=== PATIENT | female | born 1945 | race Caucasian/White ===

== ENCOUNTER 2018-09-20 02:11 | Outpatient (CLI) | payer OTHER, SELFPAY ==
[2018-09-20 11:04] LABS: Abs Immature Grans 0.03 k/cumm (0.0-0.09); Absolute Basophil Count 0.04 k/cumm (0.0-0.2); Absolute Eosinophil Count 0.23 k/cumm (0.0-0.7); Absolute Lymphocyte Count 2.16 k/cumm (1.2-3.4); Absolute Monocyte Count 0.66 k/cumm (0.11-0.7); Absolute Neutrophil Count 2.11 k/cumm (1.2-6.7); Basophils % 0.8; Eosinophils % 4.4; HGB 13.6 g/dL (12.0-15.5); Immature Grans % 0.6; Lymphocytes % 41.3; Mean Corp. HGB Concentration 32.4 g/dL (32.0-36.0); Mean Corpuscular Hemoglobin 31.2 pg (27.0-33.0); Mean Corpuscular Volume 96.3 fL (80-95); Mean Platelet Volume 10.5 fL (8.0-11.0); Monocytes % 12.6; Neutrophils % 40.3; Platelet Count 277 x1000/uL (130-400); RBC 4.36 m/cumm (4.00-5.20); RBC Distribution Width 12.6 % (11.7-14.6); White Blood Cell Count 5.23 k/cumm (4.4-10.8)
[2018-09-20 11:26] LABS: ALT 29 U/L (12-78); AST 21 U/L (15-37); Alkaline Phosphatase 76 U/L (46-116); Anion Gap 6.8 mmol/L (3-11); BUN 18 mg/dL (7-18); Bilirubin, Total 0.7 mg/dL (0.2-1.0); CO2 29.2 mmol/L (21.0-32.0); CREATININE 1.01 mg/dL (0.55-1.02); Calcium 9.6 mg/dL (8.5-10.1); Calculated LDL 126; Chloride 101 mmol/L (98-107); Cholesterol 257 mg/dL (50-200); Estimated GFR 53.73 (mL/min/1.73m2); Glucose 113 mg/dL (70-100); HDL Cholesterol 109 mg/dL (40-60); Potassium 4.8 mmol/L (3.5-5.1); Sodium 137 mmol/L (136-145); TSH (W/Ref FT4) 1.28 uIU/mL (0.358-3.74); Total Protein 7.1 g/dL (6.4-8.2); Triglyceride 113 mg/dL (30-150)
== END 2018-09-20 02:31 ==
PROVIDERS: PCP Internal Medicine; Visit Provider Internal Medicine
DX: I10 Essential (primary) hypertension (principal); E78.5 Hyperlipidemia, unspecified
CPT/HCPCS: 36415; 80053; 80061; 83721; 84443; 85025

== ENCOUNTER 2018-10-09 01:07 | Outpatient (CLI) | payer OTHER, SELFPAY ==
--- NOTE | 2018-10-09 14:55 | DI.MAMMO_ITS ---
SYMPTOMS/DIAGNOSIS: SCREENING, ENCOUNTER FOR MEDICAL EXAM, Z00.00 BILATERAL SCREENING MAMMOGRAM: Mammograms were interpreted according to the usual protocol including computer analysis with CAD system, tomosynthesis and C view imaging. Comparison is made with exams from 2010 through 2016. The breasts are composed of scattered fibroglandular densities, breast density category B. No suspicious masses or suspicious microcalcifications are seen. There has been no significant change. IMPRESSION: Category 1, negative mammogram. Yearly screening mammography is recommended. [facility] ASSESSMENT OF FINDINGS: Negative. Category 1. Patient will receive a letter notifying them of these results. BI-RADS category B. There are scattered areas of fibroglandular density.
--- NOTE | 2018-10-09 14:55 | DI.RAD_ITS ---
SYMPTOMS/DIAGNOSIS: F/U OSTEOPOROSIS, M81.0 DEXA SCAN WITH JUAN: Comparison is made with exams from 2007 through 2012. The JUAN image shows no evidence of compression fractures. The bone mineral density measurements of the lumbar spine correspond to a total T score of -2.4, in the osteopenic range. This is an increase of 4.0% when compared with 2012 and an 8% increase when compared with 2007. The bone mineral density measurements of the left hip correspond to a total T score of -1.6 and a femoral neck T score of -1.9, in the osteopenic range. This is a 5.2% decrease when compared with 2012 and a 2.9% increase when compared with 2007. The bone mineral density measurements of the right forearm correspond to a total T score of -1.9 and a T score of the distal third also of -1.9. This is a 4.9% decrease when compared with 2009. IMPRESSION: Osteopenia of the lumbar spine with increase when compared with the previous exam. Osteopenia of the left hip with overall slight increase compared with 2007. Osteopenia of the right forearm with mild decrease when compared with 2009.
== END 2018-10-09 01:27 ==
PROVIDERS: PCP Internal Medicine; Visit Provider Internal Medicine
DX: M81.0 Age-related osteoporosis without current pathological fracture; M85.88 Other specified disorders of bone density and structure, other site; Z12.31 Encounter for screening mammogram for malignant neoplasm of breast
CPT/HCPCS: 77063; 77067; 77080

== ENCOUNTER 2019-08-19 21:27 | Outpatient (REF) | payer OTHER, SELFPAY ==
[2019-08-19 18:25] LABS: Bilirubin Negative (Negative); Blood Moderate (Negative); Clarity Cloudy (Clear); Glucose Negative (Negative); Ketones Negative (Negative); Leukocyte Esterase Small (Negative); Nitrite Positive (Negative); Specific Gravity 1.025 (1.005-1.025); Urobilinogen 0.2 EU/dL (Up TO 0.2)
[2019-08-19 18:35] LABS: WBC >50 HPF (0-5)
[2019-08-19 18:36] LABS: C & S Indicated? C&S Done As Ordered
== END 2019-08-19 21:47 ==
LOC: LBN 21:27
PROVIDERS: PCP Nurse Practitioner
DX: R30.0 Dysuria (principal)
CPT/HCPCS: 87077; 81003; 81015; 87086; 87186

== ENCOUNTER 2019-10-29 12:32 | Outpatient (REF) | payer OTHER, SELFPAY ==
[2019-10-29 21:28] LABS: CREATININE 1.05 mg/dL (0.55-1.02); Calculated LDL 130 mg/dL (<100); Cholesterol 235 mg/dL (<200); Estimated GFR 51.23 (mL/min/1.73m2); HDL Cholesterol 90 mg/dL (40-60); Potassium 4.6 mmol/L (3.5-5.1); Triglyceride 78 mg/dL (<150)
[2019-10-29 21:55] LABS: Hemoglobin A1C 6.1 % (3.8-5.6)
== END 2019-10-29 12:52 ==
LOC: LBN 12:32
PROVIDERS: PCP Nurse Practitioner; Visit Provider Nurse Practitioner
DX: Z13.1 Encounter for screening for diabetes mellitus (principal); E78.5 Hyperlipidemia, unspecified; I10 Essential (primary) hypertension
CPT/HCPCS: 80061; 82565; 83036; 84132

== ENCOUNTER 2019-10-31 00:31 | Outpatient (CLI) | payer OTHER, SELFPAY ==
--- NOTE | 2019-10-31 08:14 | DI.MAMMO_ITS ---
EXAM: MG MAMMO SCREENING CLINICAL HISTORY: screening TECHNIQUE: Bilateral full field digital CC and MLO mammographic images were obtained with 3D tomosyn thesis and utilizing computer aided detection (CAD). COMPARISON: Available for comparison. FINDINGS: Masses/Architectural Distortion: None seen. Microcalcifications: No suspicious pleomorphic-type are seen. Skin Thickening/Nipple Retraction: None. IMPRESSION: 1. No significant interval change with no specific features of malignancy noted. 2. Unless there is more urgent need, screening mammography is recommended, as per [employer] guidelines. BI-RADS Category 1 - Negative Breast Density - Category C - Heterogeneously dense The mammogram demonstrates the patient's breast tissue is dense. Dense breast tissue is very common a nd is not abnormal but dense breast tissue can make it harder to find cancer on a mammogram. Also, de nse breast tissue may increase their breast cancer risk. This information about the result of the [facility] mogram report was provided to the patient to raise their awareness. Use this report when you speak wi th the patient about their risks for breast cancer, which includes their family history. At that time , you may recommend for more screening tests (Ultrasound or MRI) as they might be useful based on the ir risk. A negative radiographic report should not delay biopsy if a dominant or clinically suspicious mass is present. Up to ten percent of cancers are not identified on mammography. A negative report may reinforce clinical impression. Adenosis and dense breasts may obscure an underlying neoplasm. False positive reports average 6 to 10%. Patient will receive a letter notifying them of these results.
== END 2019-10-31 00:51 ==
PROVIDERS: PCP Nurse Practitioner; Visit Provider Nurse Practitioner
DX: Z12.31 Encounter for screening mammogram for malignant neoplasm of breast (principal); R92.2 Inconclusive mammogram
CPT/HCPCS: 77063; 77067

== ENCOUNTER 2020-11-02 01:57 | Outpatient (CLI) | payer OTHER, SELFPAY ==
[2020-11-02 12:37] LABS: Calculated LDL 108 mg/dL (<100); Cholesterol 220 mg/dL (<200); Estimated GFR 54.05 (mL/min/1.73m2); HDL Cholesterol 98 mg/dL (40-60); Potassium 4.6 mmol/L (3.5-5.1); Triglyceride 74 mg/dL (<150)
[2020-11-02 13:15] LABS: Hemoglobin A1C 6.1 % (<5.7)
== END 2020-11-02 01:58 | disposition home or self-care (01) ==
LOC: LOS 01:58
PROVIDERS: PCP Nurse Practitioner; Visit Provider Nurse Practitioner
DX: I10 Essential (primary) hypertension (principal); E78.5 Hyperlipidemia, unspecified; R73.03 Prediabetes
CPT/HCPCS: 36415; 80061; 82565; 83036; 84132

== ENCOUNTER 2020-11-19 03:00 | Outpatient (CLI) | payer OTHER, SELFPAY ==
--- NOTE | 2020-11-19 06:15 | DI.MAMMO_ITS ---
Exam(s) MAMMO SCREENING EXAM: MAMMO SCREENING CLINICAL HISTORY: screening,Z12.39 TECHNIQUE: Bilateral full field digital CC and MLO mammographic images were obtained with 3D tomosyn thesis and utilizing computer aided detection (CAD). COMPARISON: Available for comparison. FINDINGS: Masses/Architectural Distortion: There is a 1.4 cm partially obscured ovoid nodule in the outer right breast on the craniocaudad view. This was not apparent on the prior examination. Microcalcifications: No suspicious pleomorphic-type are seen. Skin Thickening/Nipple Retraction: None. IMPRESSION: 1. 1.4 cm nodule in the outer right breast. 2. Additional views are requested for further evaluation. Ultrasound may be indicated at that time. BI-RADS Category 0 - Assessment Incomplete: Need additional imaging evaluation Breast Density - Category C - Heterogeneously dense Breast density category C or D implies that the patient has dense breast tissue. Dense breast tissue is very common and is not abnormal but dense breast tissue can make it harder to find cancer on a ma mmogram. Also, dense breast tissue may increase their breast cancer risk. This information about the result of the mammogram report was provided to the patient to raise their awareness. Use this report when you speak with the patient about their risks for breast cancer, which includes their family hist ory. At that time, you may recommend for more screening tests (Ultrasound or MRI) as they might be us eful based on their risk. A negative radiographic report should not delay biopsy if a dominant or clinically suspicious mass is present. Up to ten percent of cancers are not identified on mammography. A negative report may reinforce clinical impression. Adenosis and dense breasts may obscure an underlying neoplasm. False positive reports average 6 to 10%. Patient will receive a letter notifying them of these results.
== END 2020-11-19 03:20 ==
PROVIDERS: PCP Nurse Practitioner; Visit Provider Nurse Practitioner
DX: Z12.31 Encounter for screening mammogram for malignant neoplasm of breast (principal); N63.10 Unspecified lump in the right breast, unspecified quadrant
CPT/HCPCS: 77063; 77067

== ENCOUNTER 2020-12-15 01:26 | Outpatient (CLI) | payer OTHER, SELFPAY ==
--- NOTE | 2020-12-15 10:10 | DI.MAMMO_ITS ---
Exam(s) MAMMO SCREEN CALL BACK UNI EXAM: MAMMO SCREEN CALL BACK UNI CLINICAL HISTORY: F/U MAMMO, RT BREAST NODULE TECHNIQUE: Spot compression views and tomographic imaging were performed. COMPARISON: 19 November 2020 and exams back to 2011 FINDINGS: No suspicious masses or suspicious microcalcifications are seen. No persistent abnormality is seen on the additional views performed. The findings are consistent wit h overlying fibroglandular tissue. There has been no significant change from prior exams. IMPRESSION: BI-RADS Category 1, Negative Yearly screening mammography is recommended. Breast Density - Category C - Heterogeneously dense.
== END 2020-12-15 01:46 ==
PROVIDERS: PCP Nurse Practitioner; Visit Provider Nurse Practitioner
DX: R92.8 Other abnormal and inconclusive findings on diagnostic imaging of breast (principal); N63.10 Unspecified lump in the right breast, unspecified quadrant; Z12.31 Encounter for screening mammogram for malignant neoplasm of breast
CPT/HCPCS: 77063; 77067

== ENCOUNTER 2021-03-18 10:06 | Outpatient (CLI) | payer MEDICARE, SELFPAY ==
--- NOTE | 2021-03-18 09:15 | DI.DEXA_ITS ---
Exam(s) XR DEXA BONE DENSITY W/WO JUAN EXAM: XR DEXA BONE DENSITY W/WO JUAN CLINICAL HISTORY: osteoporosis,M81.0 TECHNIQUE: Routine DEXA evaluation of the lumbar spine, hip, or forearm. COMPARISON: Prior DXA scans, most recent being October 2018 FINDINGS: Performed on a HoloTiempy unit. Lateral image: No compression fracture evident. Lumbar Spine total T-score: -2.3.. Prior October 2018 reading -2.4 Hip total T-score:-1.5. Prior October 2018 reading was -1.6. Independent reading at the level of the femoral neck yields at T-score of -2.0. Forearm total T-score: -1.8 IMPRESSION: Bone mineral density measures in the osteopenia range. Fracture risk is moderate. Note: Any spine fracture indicates 5x risk for subsequent spine fracture and 2x risk for subsequent h ip fracture. World Health Organization criteria for BMD interpretation classify patients: Normal...... T- Score at or above -1.0 Osteopenic... T- Score between -1.0 and -2.5 Osteoporosis... T-Score at or below -2.5
== END 2021-03-18 10:26 ==
PROVIDERS: PCP Nurse Practitioner; Visit Provider Nurse Practitioner
DX: M81.0 Age-related osteoporosis without current pathological fracture (principal); M85.88 Other specified disorders of bone density and structure, other site
CPT/HCPCS: 77080

== ENCOUNTER → 2021-05-21 13:13 | Outpatient (BNVA) | payer MEDICARE, SELFPAY | PROVIDERS: PCP Nurse Practitioner; Referring Provider Nurse Practitioner; Visit Provider Physical Therapy Assistant | DX: Z12.11 Encounter for screening for malignant neoplasm of colon (principal); I10 Essential (primary) hypertension ==

== ENCOUNTER 2021-09-27 06:58 | Day surgery (SDC) | payer MEDICARE, SELFPAY ==
--- NOTE | 2021-09-27 06:43 | W.PREOPHP ---
Assessment and Plan Assessment and plan (1) Encounter for colorectal cancer screening: Status: Acute Assessment and plan: The patient is here for Colonoscopy pre-op. Her last screening was in 2010 and was unremarkable. She has no family history of colon cancer. She has not had any bowel habit changes. -Discussed colonoscopy bowel prep as well as the procedure. Discussed possible complications of the procedure to include bleeding, pain, perforation, missed small lesion/polyp, sore throat, aspiration and adverse reaction to the medications. Questions were answered to patient?s satisfaction. No guarantees were implied or given.? She will hold her fish oil and vitamin D x 5 days prior to her procedure. Will hold lisinopril-hydrochlorothiazide the morning of his procedure. I spent? ? 26? ? minutes in reviewing the record, seeing the patient, providing patient education, answering patient's questions and documenting in the medical record. P// Colonoscopy under sedation. History of Present Illness Narrative: 75 y/o female with history of prediabetes, HTN and hyperlipidemia presents for colonoscopy screening pre-op. Her last screening was in 2010, which was unremarkable. She denies a family history of colon cancer. She denies any changes in bowel habits including bloody or black tarry stools, abdominal pain, diarrhea or constipation. She denies constitutional symptoms. Denies use of marijuana or any other recreational or illegal drugs. She denies chest pain, palpitations, dyspnea or dyspnea with exertion. She participates in a pilates/yoga combo class 3x/wk.? She denies prior history or family history of adverse reactions or complications with anesthesia. The patient denies any history of stroke, DE, seizures, bleeding or clotting disorders. She denies having any implanted metal in her body. No changes in her health and no admissions to the ED since she was seen in May Review of Systems All systems reviewed & are unremarkable except as noted in HPI and below PFSH All Active Problems Osteoporosis (Chronic 09/05/12) DEXA 03/30- osteopenia Hyperlipidemia (Chronic 09/05/12) Last numbers were good and we will recheck these. Essential hypertension (Acute 03/06/13) Dermatitis, seborrheic (Chronic 04/22/16) Pre-diabetes (Acute) Encounter for colorectal cancer screening (Acute) Medical History History of trigger finger Hyperlipidemia Hypertension Internal derangement of right knee (02/27/17) Osteoporosis Scalp lesion Send pictures to Dr. Rice, burring wheel operator, for his advice. Seborrheic keratosis Surgical History Excision, Lesion (04/22/16) benign wart, seorrheic keratosis History of carpal tunnel release History of tubal ligation Family History Mother , 79 Heart disease Hyperlipidemia Hypertension Father , 42 Depression Brother , 44 No problems noted. Maternal Grandfather , 45 Cancer Paternal Grandfather , 80 No problems noted. Maternal Grandmother , 79 Heart disease Paternal Grandmother , 75 No problems noted. Daughter No problems noted. Other Essential hypertension Social History Smoking/Tobacco Use Status: Never Tobacco: How many years used: 3 Second Hand Exposure: No Smoking risk assessment performed?: Yes Alcohol Intake: current Alcohol Intake frequency: 0-2 drinks per day Alcohol type: wine Drug use: Never Substance use type: does not use Caregiver/Support person: No Household members: spouse Housing: house Communication Needs: None Do you need help understanding health information?: Rarely Pets and animals: No Sexually active: Yes Do you think of yourself as: straight/heterosexual Current gender identity: female What is your relationship status?: How often do you talk on the phone with friends or family?: twice per week How often do you get together with friends or relatives?: once per week How often do you attend pentecostalism or mormonism services?: decline to answer Do you belong to any clubs or organized social groups?: no Panel score (0-1 are the most socially isolated patients): 2 What type of physical activity do you participate in: walking, other Details: PiYo and yoga Duration: 45-60 minutes/day Frequency: 5-6 times per week Jacqueline/Orthodox: Lutheran Special jacqueline needs: No Seatbelt use: always Drive intox or ride w/intox special education bus driver: No Do you feel safe at home: Yes Do you feel safe in your relationship?: Yes Meds Allergies and Home Medications Allergies Allergy/AdvReac Type Severity Reaction Status Date / Time black flies AdvReac Intermediate Swelling/Ed Uncoded 09/27/21 07:16 gabe Home Medications Medication Instructions Recorded Confirmed Type calcium carbonate 1,000 mg-vitamin 1 tab PO DAILY 09/04/12 09/27/21 History D3 20 mcg (800 unit) tablet cholecalciferol (vitamin D3) 25 4,000 unit PO DAILY 09/04/12 09/27/21 History mcg (1,000 unit) capsule omega-3 fatty acids-fish oil 340 1 ea PO DAILY 03/06/17 09/27/21 History mg-1,000 mg capsule (Fish Oil) triamcinolone acetonide 0.5 % 1 applic topical BID PRN eczema #3 09/17/18 09/27/21 Rx topical cream grams lisinopril 20 2 tab PO DAILY #180 tab-caps 10/29/20 09/27/21 Rx mg-hydrochlorothiazide 12.5 mg tablet (Zestoretic) simvastatin 20 mg tablet 40 mg PO DAILY #180 tab-caps 10/29/20 09/27/21 Rx bisacodyl 5 mg tablet,delayed 5 mg PO ONCE colonscopy bowel prep 05/21/21 09/27/21 Rx release (Dulcolax (bisacodyl)) #4 tabs polyethylene glycol 3350 17 238 g PO ONCE colonoscopy prep 05/21/21 09/27/21 Rx gram/dose oral powder #238 grams Exam HENMT Head: normocephalic and atraumatic Resp Effort & Inspection: normal respiratory effort Auscultation: clear to auscultation bilaterally Cardio Rate: regular rate Rhythm: regular rhythm Heart Sounds: no gallops, no murmurs and no rubs GI Inspection: normal to inspection Palpation: soft and nontender
--- NOTE | 2021-09-27 06:46 | COLE_ITS ---
Colonoscopy Report Date of procedure: 09/27/21 Pre-op diagnosis general: colon Cancer Screening Post-op diagnosis procedure note: other (polyps and diverticulosis) Procedure: Colonoscopy with polypectomy Surgeon: Samantha Arreguin Anesthesia Type: General:No Airway Estimated blood loss (mL): 2 Pathology: other (cecal polyps and transverse polyp) Complications: None Disposition: same day Indications: The patient is here for Colonoscopy pre-op. Her last screening was in 2010 and was unremarkable. She has no family history of colon cancer. She has not had any bowel habit changes. -Discussed colonoscopy bowel prep as well as the procedure. Discussed possible complications of the procedure to include bleeding, pain, perforation, missed small lesion/polyp, sore throat, aspiration and adverse reaction to the medications. Questions were answered to patient?s satisfaction. No guarantees were implied or given.? Prep: Miralax/Dulcolax Procedure Start Time: 08:05 Procedure End Time: 08:31 Retraction Time: 9 minutes Findings: 2 sessile polyps mild to moderate diverticulosis Procedure Description: After informed consent was obtained the patient was taken to the procedure room and placed in a left decubitous position. Monitors were applied and a time out was done. The patients name, date of , procedure, allergies to medications and metal in their body was reviewed. The patient was then sedated. Once sedated and comfortable a rectal exam was done. External exam was normal. Internal exam revealed a normal sphincter tone and no palpable masses. The scope was then introduced and retro-flexed. No internal hemorrhoids, polyps or masses were identified on retro-flexion. The scope was then advanced to the cecum without difficulty. The ileocecal vlave and appendiceal orifice were identified. The prep was good. The scope was then slowly retracted over 9 min utes back into the rectum. Polyps were removed with cold forceps in the cecum and transverse colon. There was mild to moderate diverticulosis noted in the descending and sigmoid colon. The scope was removed and the patient was woken up and taken back to Same day surgery in stable condition. The patient tolerated the procedure well and there were no immediate complications. Follow up: The patient should follow up in 5 years unless they develop changes in bowel habits or other new gastrointestinal complaints.
--- NOTE | 2021-09-27 06:47 | W.PM.DSUDISC ---
Discharge Plan Disposition Patient Disposition: HOME Condition: Good Discharge Details Reason For Visit: colonoscopy Attending Provider: Samantha Arreguin Primary Care Provider: Josette Herrera Home Meds and New Rx's Prescriptions: Continued triamcinolone acetonide 0.5 % cream 1 applic Topical BID PRN (Reason: eczema) Qty: 3 3RF lisinopril-hydrochlorothiazide [Zestoretic] 20-12.5 mg tablet 2 tab PO DAILY Qty: 180 4RF simvastatin 20 mg tablet 40 mg PO DAILY Qty: 180 3RF cholecalciferol (vitamin D3) 1,000 UNIT capsule 4,000 unit PO DAILY calcium carbonate-vitamin D3 1 EACH tablet 1 tab PO DAILY Rx Instructions: VIT D3 400IU Fish Oil 1 EACH capsule 1 ea PO DAILY Discontinued polyethylene glycol 3350 17 gram/dose powder 238 g PO ONCE Qty: 238 0RF Rx Instructions: take per colonoscopy instructions bisacodyl [Dulcolax (bisacodyl)] 5 mg tablet,delayed release (DR/EC) 5 mg PO ONCE Qty: 4 0RF Rx Instructions: take per colonoscopy instructions Discharge Instructions Instructions: Aspiration Pneumonia (GEN), Diverticulosis (DC), Colorectal Polyps (DC) Additional Instructions: Findings: 2 polyps Diverticulosis Follow up: ? 5 years Please call if you develop: fevers >101.5 Nausea or Vomiting Abdominal pain that is not transient Rectal bleeding that is more then a tbsp A hard abdomen and inability to pass gas DAY SURGERY UNIT POST ENDOSCOPY INSTRUCTIONS Instructions for everyone who is given Anesthesia: For your safety, please do the following for the next 24 Hours: a. Do not drive or operate dangerous equipment b. Do not drink alcohol beverages or use any recreational drugs for the first 24 hours or while taking pain medications. The medications in your body may have a reaction that can be dangerous. c. Do not make any important decisions or sign any important papers 1. Generally there are no restrictions on your activity after a day or so has gone by, but you may feel a bit fatigued for a few days. 2. After you arrive home you may have a light meal and return to a normal diet as you can tolerate it without feeling sick to your stomach. 3. After surgery, you may feel pain or discomfort. This should be only transient, but if it persists please contact your doctor. 4. If there are any questions regarding the findings of your procedure, please feel free to contact your doctor. 6. If you are unable to contact your doctor with a problem, contact the hospital at [phone]. 7. Continue all your regular medications unless directed otherwise. I understand the above instructions and have no questions. Signature of Patient or Responsible Adult Escort Date/Time Name of Responsible Adult Escort Signature of Nurse Date/Time Activity:: Activity as Tolerated Diet:: high fiber diet Discharge Orders Discharge Orders: Discharge Order (Routine); Ordered 09/27/21 Ordered By: Samantha Arreguin DS: Diagnosis Discharge Diagnosis (1) Encounter for colorectal cancer screening: Status: Acute
[2021-09-27 07:18] VITALS: BP 153/61; PULSE 67; RESP 19; TEMP 36.5; O2SAT 100
[2021-09-27] MEDS: Lactated Ringers 1,000 ML 80 ML IV (07:28)
--- NOTE | 2021-09-27 07:45 | W.ANESPRE ---
General Info Date of Service Date Performed: 09/27/21 Height: 5 ft Weight: 61.4 kg Body Mass Index (BMI): 26.4 Surgical Procedure: Operation Date: 09/27/21 08:05 Proposed Procedure Side Surgeon p Colonoscopy Samantha Arreguin MD Meds Allergies and Home Medications Allergies Allergy/AdvReac Type Severity Reaction Status Date / Time black flies AdvReac Intermediate Swelling/Ed Uncoded 09/27/21 07:16 gabe Home Medication Medication Instructions Recorded calcium carbonate 1,000 mg-vitamin 1 tab PO DAILY 09/04/12 D3 20 mcg (800 unit) tablet cholecalciferol (vitamin D3) 25 4,000 unit PO DAILY 09/04/12 mcg (1,000 unit) capsule omega-3 fatty acids-fish oil 340 1 ea PO DAILY 03/06/17 mg-1,000 mg capsule (Fish Oil) triamcinolone acetonide 0.5 % 1 applic topical BID PRN eczema #3 09/17/18 topical cream grams lisinopril 20 2 tab PO DAILY #180 tab-caps 10/29/20 mg-hydrochlorothiazide 12.5 mg tablet (Zestoretic) simvastatin 20 mg tablet 40 mg PO DAILY #180 tab-caps 10/29/20 bisacodyl 5 mg tablet,delayed 5 mg PO ONCE colonscopy bowel prep 05/21/21 release (Dulcolax (bisacodyl)) #4 tabs polyethylene glycol 3350 17 238 g PO ONCE colonoscopy prep 05/21/21 gram/dose oral powder #238 grams Current Visit Medications: Current Medications Generic Name Dose Route Start Last Admin Trade Name Freq PRN Reason Stop Dose Admin Hyoscyamine Sulfate 0.125 mg 09/27/21 06:47 Hyoscyamine 0.125 Mg Sl/Oral/Chew SL DIRECTED PRN Ringer's Solution 1,000 mls @ 80 mls/hr 09/27/21 06:00 09/27/21 07:28 IV 10/24/21 23:59 80 mls/hr INFUSION SOO Administration IV Miscellaneous Supplies 1 each 09/27/21 06:00 Iv Access IV 10/24/21 23:59 DIRECTED SOO Ondansetron HCl 4 mg 09/27/21 06:47 Ondansetron 4 Mg/2 Ml Vial IVP Q4H PRN PRN Nausea / Vomiting Sodium Chloride 0 ml 09/27/21 06:00 Normal Saline Flush 10 Ml Syr IV 10/24/21 23:59 PRN PRN Sodium Chloride 0 ml 09/27/21 06:00 Normal Saline 10 Ml Vial IJ 10/24/21 23:59 DIRECTED PRN Sterile Water 0 ml 09/27/21 06:00 Water,Injection,Sterile 10 Ml Vial IJ 10/24/21 23:59 DIRECTED PRN PFSH Active Problems Active Problems: Problem Status Onset Code Osteoporosis 09/05/12 M81.0 Hyperlipidemia 09/05/12 E78.5 Essential hypertension 03/06/13 I10 Dermatitis, seborrheic 04/22/16 L21.9 Pre-diabetes R73.03 Encounter for colorectal cancer screening Z12.11, Z12.12 Medical History Medical History (Updated 09/27/21 @ 07:15 by Ambar Mann RN) History of trigger finger Hyperlipidemia Hypertension Internal derangement of right knee (02/27/17) Osteoporosis Scalp lesion Send pictures to Dr. Rice, camera systems engineer, for his advice. Seborrheic keratosis Surgical History Surgical History (Updated 09/27/21 @ 07:15 by Ambar Mann RN) Excision, Lesion (04/22/16) benign wart, seorrheic keratosis History of carpal tunnel release History of tubal ligation Tobacco Smoking/Tobacco Use Status: Never Passive smoking exposure: No Second hand exposure: No Alcohol Alcohol Intake: current Alcohol intake frequency: 0-2 drinks per day Alcohol type: wine Substance Use Substance use: Never Substance use type: does not use Vital Signs and Lab Results Vital Signs Most Recent Vital Signs in EMR: Most Recent Vital Signs Temp Pulse Resp BP Pulse Ox 36.5 C 67 19 153/61 H 100 09/27/21 07:18 09/27/21 07:18 09/27/21 07:18 09/27/21 07:18 09/27/21 07:18 Lab Results Blood Type / Crossmatch: No Data to Display Complete Blood Count: No Data to Display Complete Metabolic Panel: No Data to Display Liver Function Panel: No Data to Display Coagulation Panel: No Data to Display Cardiac Panel: No Data to Display Arterial Blood Gas: No Data to Display Venous Blood Gas: No Data to Display Pancreas Panel: No Data to Display Thyroid Panel: No Data to Display Infectious Disease: No Data to Display Blood Cultures: No Data to Display Toxicology Panel: No Data to Display Anesthesia Assessment and Plan Anesthesia History Personal History: No History of Anesthesia Complications Family History: No Family History of Anesthesia Complications Exercise Tolerance Exercise Tolerance: Metabolic Equivalents>4 Pertinent Negatives Pertinent Negatives: No Symptoms of GERD, No Major Cardiovascular Symptoms or Complaints and No Major Pulmonary Symptoms or Complaints Cardiac & Pulmonary Exam Cardiac Exam: Normal S1/S2 Heart Sounds Pulmonary Exam: Clear Bilateral Breath Sounds Implantable Cardiac Device Does patient have a Pacemaker or an ICD?: No Airway Exam Known Difficult Airway: No Mallampati Class: 1 Mouth Opening: Normal (> 3cm) Thyromental Distance: Greater than 3 cm Neck Range of Motion: Full ROM Neck Circumference: Normal Teeth Condition: Normal Dentition ASA Classification ASA Score: ASA 2 Emergency Case?: No NPO Status NPO Status: NPO Clears >2 hours, Solids >8 hours Anesthesia Plan Resuscitation Status: Full Code Anesthesia Technique: General Anesthesia Airway Planned: Natural Airway Monitors Used: Standard Monitors
[2021-09-27 07:47] VITALS: BMI 26.4
--- NOTE | 2021-09-27 08:20 | BOWEL_PTH ---
PATIENT: Nadya Romano LOC: PO U#:[id number] AGE/SX: 76/F ROOM: RE09/27/[address]: Samantha Arreguin MD : 1945 BED: DIS: 09/27/2021 SPEC #: [id number] RECD: 09/27/21 12:06 STATUS: KODAK RERafita #: [id number] CRISS: 09/27/21 08:[address]: Samantha Arreguin DEPT: Surgical Specimen RECD BY: Pricila Hurley ENTERED: 09/27/21 12:07 SP TYPE: Bowel OTHR DR: Josette Herrera, PhD COMMISSIONS SPECIALIST Tissues: 1 - BIOPSY BOWEL 2 - BIOPSY BOWEL Procedures: GROSS AND MICRO LEVEL 4 Comments: [id number]
[2021-09-27 08:41] VITALS: BP 127/63; PULSE 60; RESP 17; TEMP 36.3; O2SAT 98
[2021-09-27 09:11] VITALS: BP 169/65; PULSE 65; RESP 18; TEMP 36.5; O2SAT 99
--- NOTE | 2021-09-27 10:28 | W.ANESPOSTOP ---
Postoperative Evaluation Date, Time and Location Date Performed: 09/27/21 Time Performed: 10:29 Patient Location: Day Surgery Unit Vital Signs Most Recent Imported Vital Signs: Most Recent Vital Signs Temp Pulse Resp BP Pulse Ox 36.5 C 65 18 169/65 H 99 09/27/21 09:11 09/27/21 09:11 09/27/21 09:11 09/27/21 09:11 09/27/21 09:11 Assessment Mental Status: Awake (Alert & Oriented to Patient Baseline) Airway and Respiratory Function: Patent airway with normal (patient baseline) respiratory exam Cardiovascular Function: Hemodynamically Stable Hydration Status: Adequately Hydrated Nausea & Vomiting: No Nausea or Vomiting Pain: Pt. Denies Any Pain Peripheral Nerve Block: Patient did not receive a nerve block Postoperative Comments:: Pt feels normal, no SOB, chills, cough or chest pain. She does not seem to have aspirated. She was educated on s/s of aspiration and given a discharge handout.
== END 2021-09-27 10:00 | disposition home or self-care (01) ==
PROVIDERS: PCP Nurse Practitioner; Visit Provider Surgery
PROC: 0DJD8ZZ Inspection of Lower Intestinal Tract, Via Natural or Artificial Opening Endoscopic (ICD-10-PCS; CPT 45378; principal; 2021-09-27 08:00)
DX: Z12.11 Encounter for screening for malignant neoplasm of colon (principal); K63.5 Polyp of colon; K57.30 Diverticulosis of large intestine without perforation or abscess without bleeding; I10 Essential (primary) hypertension; E78.5 Hyperlipidemia, unspecified; K63.89 Other specified diseases of intestine
CPT/HCPCS: 45380; 88305

== ENCOUNTER 2021-11-04 03:05 | Outpatient (CLI) | payer MEDICARE, SELFPAY ==
[2021-11-04 13:09] LABS: Hemoglobin A1C 6.2 % (<5.7)
[2021-11-04 13:17] LABS: Anion Gap 8.1 mmol/L (3-11); BUN 27 mg/dL (7-18); CO2 27.9 mmol/L (21.0-32.0); CREATININE 1.2 mg/dL (0.55-1.02); Calcium 9.6 mg/dL (8.5-10.1); Calculated LDL 111 mg/dL (<100); Chloride 102 mmol/L (98-107); Cholesterol 230 mg/dL (<200); Estimated GFR 43.68 (mL/min/1.73m2); Glucose 117 mg/dL (74-106); HDL Cholesterol 105 mg/dL (40-60); Potassium 4.5 mmol/L (3.5-5.1); Sodium 138 mmol/L (136-145); Triglyceride 72 mg/dL (<150)
== END 2021-11-04 03:06 | disposition home or self-care (01) ==
LOC: LOS 03:05
PROVIDERS: PCP Nurse Practitioner; Visit Provider Nurse Practitioner
DX: I10 Essential (primary) hypertension (principal); E78.5 Hyperlipidemia, unspecified; R73.03 Prediabetes
CPT/HCPCS: 36415; 80048; 80061; 83036

== ENCOUNTER → 2021-11-22 01:08 | Outpatient (CLI) | payer MEDICARE, SELFPAY ==
--- NOTE | 2021-11-22 12:56 | DI.MAMMO_ITS ---
Exam(s) MAMMO SCREENING EXAM: MAMMO SCREENING CLINICAL HISTORY: screening,z12.39. TECHNIQUE: Bilateral full field digital CC and MLO mammographic images were obtained with 3D tomosyn thesis and utilizing computer aided detection (CAD). COMPARISON: Prior mammograms were reviewed, the most recent being November 2020. FINDINGS: There has been no significant change in the appearance and distribution of fibroglandular tissue. Right breast skin mole again noted. There are no new spiculated masses nor malignant appearing microcalcification groups. Small asymmetric density in the retroareolar region of the left breast noted measuring 4 x 4.5 millim eters on the MLO view, located 1.5 cm in the nipple., more evident on prior studies. Spot compressio n view and ultrasound recommended. There is no significant architectural distortion nor skin thickening-retraction. IMPRESSION: No radiographic evidence of malignancy right breast. Left breast asymmetric density-nodule located anteriorly. Spot compression MLO view and ultrasound r ecommended. BI-RADS Category 0 - Assessment Incomplete: Need additional imaging evaluation Breast Density - Category C - Heterogeneously dense Breast density Category C or D implies that the patient has dense breast tissue. Dense breast tissue can make it harder to find cancer on a mammogram. Dense breast tissue is also associated with an incr eased risk of breast cancer. This information about the result of the mammogram report was provided to the patient to raise their awareness. Use this report when you speak with the patient about their risks for breast cancer, which includes their family history. At that time, you may recommend additional screening tests (Ultrasoun d or MRI) as these tests may add significant information. A negative radiographic report should not delay biopsy if a dominant or clinically suspicious mass is present. Up to ten percent of cancers are not identified on mammography. A negative report may reinforce clinical impression. Adenosis and dense breasts may obscure an underlying neoplasm. False positive reports average 6 to 10%. Patient will receive a letter notifying them of these results.
== END ==
PROVIDERS: PCP Nurse Practitioner; Visit Provider Nurse Practitioner
DX: Z12.31 Encounter for screening mammogram for malignant neoplasm of breast (principal); R92.8 Other abnormal and inconclusive findings on diagnostic imaging of breast
CPT/HCPCS: 77063; 77067

== ENCOUNTER → 2021-11-25 02:04 | Outpatient (CLI) | payer MEDICARE, SELFPAY ==
--- NOTE | 2021-11-25 | DI.MAMMO_ITS ---
Exam(s) MAMMO SCREEN CALL BACK UNI EXAM: MAMMO SCREEN CALL BACK UNI CLINICAL HISTORY: F/U MAMMO, R92.8LT BREAST ASYMMETRIC DENSITY TECHNIQUE: Spot compression views and tomographic imaging were performed. COMPARISON: 22 November 2021 and exams back to 2013 FINDINGS: No suspicious masses or suspicious microcalcifications are seen. No persistent abnormality is seen on the additional views performed. The findings are consistent wit h overlying fibroglandular tissue. There has been no significant change from prior exams. IMPRESSION: BI-RADS Category 1, Negative Yearly screening mammography is recommended. Breast Density - Category C - Heterogeneously dense
== END ==
PROVIDERS: PCP Nurse Practitioner; Visit Provider Nurse Practitioner
DX: Z12.31 Encounter for screening mammogram for malignant neoplasm of breast (principal); R92.8 Other abnormal and inconclusive findings on diagnostic imaging of breast
CPT/HCPCS: 77063; 77067

== ENCOUNTER 2022-11-04 01:31 | Outpatient (CLI) | payer MEDICARE, SELFPAY ==
[2022-11-04 12:19] LABS: HCT 39.5 % (36.0-46.0); HGB 12.6 g/dL (11.2-15.7); MCHC 31.9 % (32.0-36.0); MCV 97 fL (80-95); Platelet Count 304 10^3/uL (130-400); RBC 4.07 10^6/uL (3.93-5.22); RDW 12.4 % (11.7-14.6); RDW-SD 44.3 fL; WBC 5.12 10^3/uL (4.4-10.8)
[2022-11-04 12:33] LABS: Anion Gap 5.4 mmol/L (3-11); BUN 39 mg/dL (7-18); CO2 29.6 mmol/L (21.0-32.0); CREATININE 1.2 mg/dL (0.55-1.02); Calcium 9.4 mg/dL (8.5-10.1); Calculated LDL 128 mg/dL (<100); Chloride 105 mmol/L (98-107); Cholesterol 238 mg/dL (<200); Estimated GFR 46.62 (mL/min/1.73m2); Glucose 106 mg/dL (74-106); HDL Cholesterol 97 mg/dL (40-60); Potassium 5.1 mmol/L (3.5-5.1); Sodium 140 mmol/L (136-145); Triglyceride 69 mg/dL (<150)
[2022-11-04 12:36] LABS: Hemoglobin A1C 6.1 % (<5.7)
== END 2022-11-04 01:32 | disposition home or self-care (01) ==
LOC: LOS 01:32
PROVIDERS: PCP Nurse Practitioner Family; Visit Provider Nurse Practitioner Family
DX: E78.5 Hyperlipidemia, unspecified (principal); I10 Essential (primary) hypertension; R73.03 Prediabetes
CPT/HCPCS: 36415; 80048; 80061; 85027; 83036

== ENCOUNTER → 2022-11-25 00:16 | Outpatient (CLI) | payer MEDICARE, SELFPAY ==
--- NOTE | 2022-11-25 06:45 | DI.MAMMO_ITS ---
Exam(s) MAMMO SCREENING EXAM: MAMMO SCREENING CLINICAL HISTORY: screening,Z12.39. TECHNIQUE: Bilateral full field digital CC and MLO mammographic images were obtained with 3D tomosyn thesis and utilizing computer aided detection (CAD). COMPARISON: Prior mammograms dating back to 2013 were reviewed. FINDINGS: There has been no significant change in the appearance and distribution of the fibroglandular tissue. No new right breast findings. The left breast on the 3D cc view there is asymmetric density approximately 12 o'clock position measu ring 1.9 by 0.8 centimetres, located 5 cm in from the nipple. However, this is unchanged from all pr ior mammograms and therefore benign. There are no malignant-appearing microcalcification groups in this region or elsewhere in either [address]. There is no significant architectural distortion nor skin thickening-retraction. IMPRESSION: Stable findings. No radiographic evidence of malignancy. BI-RADS Category 2 - Benign Findings Breast Density - Category B - Scattered areas of fibroglandular density Breast density Category C or D implies that the patient has dense breast tissue. Dense breast tissue can make it harder to find cancer on a mammogram. Dense breast tissue is also associated with an incr eased risk of breast cancer. This information about the result of the mammogram report was provided to the patient to raise their awareness. Use this report when you speak with the patient about their risks for breast cancer, which includes their family history. At that time, you may recommend additional screening tests (Ultrasoun d or MRI) as these tests may add significant information. A negative radiographic report should not delay biopsy if a dominant or clinically suspicious mass is present. Up to ten percent of cancers are not identified on mammography. A negative report may reinforce clinical impression. Adenosis and dense breasts may obscure an underlying neoplasm. False positive reports average 6 to 10%. Patient will receive a letter notifying them of these results.
== END ==
PROVIDERS: PCP Nurse Practitioner Family; Visit Provider Nurse Practitioner Family
DX: Z12.31 Encounter for screening mammogram for malignant neoplasm of breast (principal)
CPT/HCPCS: 77063; 77067

== ENCOUNTER 2023-12-04 02:20 | Outpatient (CLI) | payer MEDICARE, SELFPAY ==
--- NOTE | 2023-12-04 06:45 | DI.MAMMO_ITS ---
Exam(s) MAMMO SCREENING EXAM: MAMMO SCREENING CLINICAL HISTORY: screening,z12.39. TECHNIQUE: Bilateral full field digital CC and MLO mammographic images were obtained with 3D tomosyn thesis and utilizing computer aided detection (CAD). COMPARISON: Prior mammograms were reviewed. FINDINGS: There has been no significant change in the appearance and distribution of the fibroglandular tissue. Large mole lateral right breast again noted. There are no new spiculated masses nor malignant appearing microcalcification groups. There is no significant architectural distortion nor skin thickening-retraction. IMPRESSION: No radiographic evidence of malignancy. BI-RADS Category 1 - Negative Breast Density - Category B - Scattered areas of fibroglandular density Breast density Category C or D implies that the patient has dense breast tissue. Dense breast tissue can make it harder to find cancer on a mammogram. Dense breast tissue is also associated with an incr eased risk of breast cancer. This information about the result of the mammogram report was provided to the patient to raise their awareness. Use this report when you speak with the patient about their risks for breast cancer, which includes their family history. At that time, you may recommend additional screening tests (Ultrasoun d or MRI) as these tests may add significant information. A negative radiographic report should not delay biopsy if a dominant or clinically suspicious mass is present. Up to ten percent of cancers are not identified on mammography. A negative report may reinforce clinical impression. Adenosis and dense breasts may obscure an underlying neoplasm. False positive reports average 6 to 10%. Patient will receive a letter notifying them of these results.
== END 2023-12-04 02:40 ==
LOC: DI 02:20
PROVIDERS: PCP Nurse Practitioner Family; Visit Provider Nurse Practitioner Family
DX: Z12.31 Encounter for screening mammogram for malignant neoplasm of breast (principal)
CPT/HCPCS: 77063; 77067

== ENCOUNTER 2023-12-12 04:56 | Outpatient (CLI) | payer MEDICARE, SELFPAY ==
[2023-12-12 14:56] LABS: Hemoglobin A1C 6.1 % (<5.7)
[2023-12-12 14:57] LABS: Anion Gap 8.4 mmol/L (3-11); BUN 27 mg/dL (7-18); CO2 27.6 mmol/L (21.0-32.0); CREATININE 1.1 mg/dL (0.55-1.02); Calcium 10.1 mg/dL (8.5-10.1); Calculated LDL 147 mg/dL (<100); Chloride 104 mmol/L (98-107); Cholesterol 270 mg/dL (<200); Estimated GFR 51.43 (mL/min/1.73m2); Glucose 100 mg/dL (74-106); HDL Cholesterol 104 mg/dL (40-60); Potassium 4.1 mmol/L (3.5-5.1); Sodium 140 mmol/L (136-145); Triglyceride 98 mg/dL (<150)
== END 2023-12-12 04:57 | disposition home or self-care (01) ==
LOC: LBO 04:57
PROVIDERS: PCP Nurse Practitioner Family; Visit Provider Nurse Practitioner Family
DX: Z00.00 Encounter for general adult medical examination without abnormal findings (principal); M81.0 Age-related osteoporosis without current pathological fracture; R73.03 Prediabetes; I10 Essential (primary) hypertension; E78.5 Hyperlipidemia, unspecified
CPT/HCPCS: 36415; 80048; 80061; 83036

== ENCOUNTER 2024-11-14 04:45 | Outpatient (CLI) | payer MEDICARE, SELFPAY ==
[2024-11-14 12:50] LABS: Hemoglobin A1C 5.9 % (<5.7)
[2024-11-14 13:14] LABS: ALT 26 U/L (14-59); AST 18 U/L (15-37); Albumin 3.7 g/dL (3.4-5.0); Alkaline Phosphatase 55 U/L (46-116); Anion Gap 9.5 mmol/L (3-11); BUN 28 mg/dL (7-18); Bilirubin, Total 0.4 mg/dL (0.2-1.0); CO2 25.5 mmol/L (21.0-32.0); Calcium 9.3 mg/dL (8.5-10.1); Calculated LDL 99 mg/dL (<100); Chloride 103 mmol/L (98-107); Cholesterol 221 mg/dL (<200); Estimated GFR 51.11 (mL/min/1.73m2); Glucose 109 mg/dL (74-106); HDL Cholesterol 108 mg/dL (>or=50); Potassium 3.9 mmol/L (3.5-5.1); Sodium 138 mmol/L (136-145); Total Protein 7.1 g/dL (6.4-8.2); Triglyceride 74 mg/dL (<150)
== END 2024-11-14 04:46 | disposition home or self-care (01) ==
LOC: LOS 04:46
PROVIDERS: PCP Nurse Practitioner Family; Visit Provider Nurse Practitioner Family
DX: Z00.00 Encounter for general adult medical examination without abnormal findings (principal); I10 Essential (primary) hypertension; E78.5 Hyperlipidemia, unspecified; R73.03 Prediabetes; M81.0 Age-related osteoporosis without current pathological fracture
CPT/HCPCS: 36415; 80053; 80061; 83036

== ENCOUNTER 2024-12-30 07:26 | Outpatient (CLI) | payer MEDICARE, SELFPAY ==
--- NOTE | 2024-12-30 06:45 | DI.MAMMO_ITS ---
Exam(s) MAMMO SCREENING EXAM: MAMMO SCREENING CLINICAL HISTORY: screening,z12.39 TECHNIQUE: Mammograms were interpreted according to the usual protocol including computer analysis with CAD system, tomosynthesis and C-view imaging. COMPARISON: 2015 through 2023 FINDINGS: The breasts are composed of scattered fibroglandular densities, Breast Density category B. No suspicious masses or suspicious microcalcifications are seen in the right breast. No skin thickening or abnormal axillary lymph nodes are seen. There has been no significant change in the right breast from prior exams. There is an asymmetric density seen centrally in the left breast on the CC view 4.5 cm from the nipple. This may represent overlying fibroglandular tissue. Spot compression views and ultrasound are requested for further evaluation. IMPRESSION: Left breast: BI-RADS Category 0 - Incomplete: Need additional imaging evaluation Right breast: Yearly screening mammography is recommended. Breast Density - Category B - There are scattered areas of fibroglandular density. Breast density Category C or D implies that the patient has dense breast tissue. Dense breast tissue can make it harder to find cancer on a mammogram. Dense breast tissue is also associated with an increased risk of breast cancer. This information about the result of the mammogram report was provided to the patient to raise their awareness. Use this report when you speak with the patient about their risks for breast cancer, which includes their family history. At that time, you may recommend additional screening tests (Ultrasound or MRI) as these tests may add significant information. A negative radiographic report should not delay biopsy if a dominant or clinically suspicious mass is present. Up to ten percent of cancers are not identified on mammography. A negative report may reinforce clinical impression. Adenosis and dense breasts may obscure an underlying neoplasm. False positive reports average 6 to 10%. Patient will receive a letter notifying them of these results.
== END 2024-12-30 07:46 ==
LOC: DI 07:27
PROVIDERS: PCP Nurse Practitioner Family; Visit Provider Nurse Practitioner Family
DX: Z12.31 Encounter for screening mammogram for malignant neoplasm of breast (principal); R92.323 Mammographic fibroglandular density, bilateral breasts
CPT/HCPCS: 77063; 77067

== ENCOUNTER 2025-01-08 03:22 | Outpatient (CLI) | payer MEDICARE, SELFPAY ==
--- NOTE | 2025-01-08 15:15 | DI.US_ITS ---
Exam(s) MG MAMMO SCREEN CALL BACK UNI US BREAST LT COMPLETE EXAM: MAMMO SCREEN CALL BACK UNI CLINICAL HISTORY: ASYMMETRIC DENSITY CENTRALLY LEFT BREAST R92.8 ABNL MAMMO. TECHNIQUE: Craniocaudal and mediolateral oblique spot compression digital Mammography views of the left breast with Tomosynthesis and left breast ultrasound. COMPARISON: [facility] MAMMO SCREENING from 12/30/2024 and exams back to 2016 FINDINGS: Mammography/Tomosynthesis: Masses: No persistent masses identified on the spot compression views. Architectural Distortion: None seen. Microcalcifictions: No suspicious pleomorphic-type are seen. Skin Thickening/Nipple Retraction: None. Left breast US: Echotexture: Normal appearance of the glandular tissue. Shadowing: No suspicious foci. Cyst: None. Solid lesions: None seen. Ductal dilation: None. IMPRESSION: 1. No evidence of malignancy is noted. 2. Unless there is more urgent need, follow-up screening mammography is recommended, as per [employer] guidelines. 3. The findings were discussed with the patient on the date of the examination. BI-RADS Category 1 - Negative Breast Density - Category B - There are scattered areas of fibroglandular density. Breast density Category C or D implies that the patient has dense breast tissue. Dense breast tissue can make it harder to find cancer on a mammogram. Dense breast tissue is also associated with an increased risk of breast cancer. This information about the result of the mammogram report was provided to the patient to raise their awareness. Use this report when you speak with the patient about their risks for breast cancer, which includes their family history. At that time, you may recommend additional screening tests (Ultrasound or MRI) as these tests may add significant information. A negative radiographic report should not delay biopsy if a dominant or clinically suspicious mass is present. Up to ten percent of cancers are not identified on mammography. A negative report may reinforce clinical impression. Adenosis and dense breasts may obscure an underlying neoplasm. False positive reports average 6 to 10%. Patient will receive a letter notifying them of these results.
== END 2025-01-08 03:42 ==
LOC: DI 03:22
PROVIDERS: PCP Nurse Practitioner Family; Visit Provider Nurse Practitioner Family
DX: Z12.31 Encounter for screening mammogram for malignant neoplasm of breast (principal); R92.8 Other abnormal and inconclusive findings on diagnostic imaging of breast
CPT/HCPCS: 76642; 77063; 77067

== ENCOUNTER → 2025-01-23 13:09 | Outpatient (BNVA) | payer MEDICARE, SELFPAY | PROVIDERS: PCP Nurse Practitioner Family; Referring Provider Nurse Practitioner Family; Visit Provider Physical Therapy Assistant | DX: Z12.11 Encounter for screening for malignant neoplasm of colon (principal); I10 Essential (primary) hypertension; Z86.0101 Personal history of adenomatous and serrated colon polyps | CPT/HCPCS: S0285 ==

== ENCOUNTER 2025-02-11 21:36 | Emergency (ER) | payer MEDICARE, SELFPAY ==
[2025-02-11] VITALS (9 sets, daily range): BP systolic 173–219; BP diastolic 72–87; PULSE 70–98; RESP 12–21; TEMP 35.6; O2SAT 98–99
--- NOTE | 2025-02-11 21:49 | W.ED.GENAD ---
Discharge Plan Disposition Patient Disposition: Home Condition: Improving Discharge Details Clinical Impression: Angioedema due to angiotensin converting enzyme inhibitor (EDUARDO-I) Primary Care Provider: Chloe Jones ED Provider: Rolando Cardoza [place] Meds and New Rx's Prescriptions: Continued triamcinolone acetonide 0.5 % cream 1 applic Topical BID PRN (Reason: eczema) Qty: 3 3RF cholecalciferol (vitamin D3) 1,000 UNIT capsule 4,000 unit PO DAILY calcium carbonate-vitamin D3 1 EACH tablet 1 tab PO DAILY Rx Instructions: VIT D3 400IU Fish Oil 1 EACH capsule 1 ea PO DAILY clobetasol 0.05 % ointment 1 applic topical BID Qty: 30 4RF Rx Instructions: Apply to skin around clitoris, labia, perineum and anus. Use daily in the am and apply prn s/p bowel movement or urination. May stop use when symptoms improve and use prn. estradiol 0.01 % (0.1 mg/gram) cream 0.25 g vaginal .COMPLEX Qty: 42.5 4RF Rx Instructions: 0.25 grams vaginally 2-3 times a week; Use Nightly 2-3x/week. Apply around clitoris, labia, perineum (skin between vagina and anus) and anus. prednisone 1 mg tablet 1 mg PO DAILY PRN (Reason: facial swelling) Qty: 14 0RF simvastatin 20 mg tablet 40 mg PO DAILY Qty: 180 3RF polyethylene glycol 3350 17 gram/dose powder 17 g PO ONCE Qty: 238 0RF Rx Instructions: Take per colonoscopy instructions provided by ordering providers office bisacodyl [Dulcolax (bisacodyl)] 5 mg tablet,delayed release (DR/EC) 5 mg PO ONCE Qty: 4 0RF Rx Instructions: Take per colonoscopy instructions provided by ordering providers office Discontinued lisinopril-hydrochlorothiazide [Zestoretic] 20-12.5 mg tablet 2 tab PO DAILY Qty: 180 4RF Discharge Instructions Instructions: Angioedema caused by EDUARDO inhibitor medicines Additional Instructions: You were seen for tongue swelling that likely is due to the lisinopril and your blood pressure medication. This is not an allergic reaction in the sense of anaphylaxis but more an adverse reaction and is called angioedema. You have improved with TXA and should over the next day return to normal. I am not sure that they will proceed with your colonoscopy in the morning but you should still show up and let anesthesia/surgery decide. You should not take your Zestoretic any longer and will need to follow-up with primary care to be placed on a different blood pressure medication. Return to the ED for any increased swelling, difficulty breathing, rash/pruritus, syncope, other concerns. Stand Alone Forms: Portal Information Referrals: Chloe Jones NP [Primary Care Provider, Medicine] [facility] General Mode of arrival: ambulatory. Date/Time Provider Initiated Documentation: 02/11/25 21:38. Limitations to Documentation: no limitations. Information obtained by: patient, family and RN notes reviewed. HPI Narrative: Patient presents to ED with tongue swelling. Patient has been taking MiraLAX for preparation of colonoscopy in the morning. About 30 to 45 minutes prior to coming in she began to develop tongue swelling. She is now having difficulty talking because of the swelling. She denies any difficulty breathing. She did take antihistamine and prednisone at home. Apparently has had similar reactions like this in the past though no clear allergen identified. Patient denies any rash or pruritus. Patient does take lisinopril/hydrochlorothiazide for high blood pressure. Related Data Home Medications Medication Instructions Recorded Confirmed calcium 1,000 mg (as 1 tab PO DAILY 09/04/12 02/11/25 carbonate)-vitamin D3 20 mcg (800 unit) tablet cholecalciferol (vitamin D3) 25 4,000 unit PO DAILY 09/04/12 02/11/25 mcg (1,000 unit) capsule omega-3 fatty acids-fish oil 340 1 ea PO DAILY 03/06/17 02/11/25 mg-1,000 mg capsule (Fish Oil) triamcinolone acetonide 0.5 % 1 applic topical BID PRN eczema #3 09/17/18 02/11/25 topical cream grams clobetasol 0.05 % topical ointment 1 applic topical BID #30 grams 11/26/24 02/11/25 estradiol 0.01% (0.1 mg/gram) 0.25 g vaginal .COMPLEX #42.5 grams 11/26/24 02/11/25 vaginal cream prednisone 1 mg tablet 1 mg PO DAILY PRN facial swelling 11/26/24 02/11/25 #14 tabs simvastatin 20 mg tablet 40 mg (2 x 20 mg) PO DAILY #180 11/26/24 02/11/25 tab-caps bisacodyl 5 mg tablet,delayed 5 mg PO ONCE #4 tabs 01/27/25 02/11/25 release (Dulcolax (bisacodyl)) polyethylene glycol 3350 17 17 g PO ONCE #238 grams 01/27/25 02/11/25 gram/dose oral powder Previous Rx's Medication Instructions Recorded triamcinolone acetonide 0.5 % 1 applic topical BID PRN eczema #3 09/17/18 topical cream grams clobetasol 0.05 % topical ointment 1 applic topical BID #30 grams 11/26/24 estradiol 0.01% (0.1 mg/gram) 0.25 g vaginal .COMPLEX #42.5 grams 11/26/24 vaginal cream prednisone 1 mg tablet 1 mg PO DAILY PRN facial swelling 11/26/24 #14 tabs simvastatin 20 mg tablet 40 mg (2 x 20 mg) PO DAILY #180 11/26/24 tab-caps bisacodyl 5 mg tablet,delayed 5 mg PO ONCE #4 tabs 01/27/25 release (Dulcolax (bisacodyl)) polyethylene glycol 3350 17 17 g PO ONCE #238 grams 01/27/25 gram/dose oral powder Allergies Allergy/AdvReac Type Severity Reaction Status Date / Time lisinopril AdvReac Severe Other (See Verified 02/11/25 23:03 Comment) black flies AdvReac Intermediate Swelling/Ed Uncoded 02/11/25 21:46 gabe General Stated Complaint: Allergic MINDI: 3 Exam Narrative Exam Narrative: Const: WDWN elderly female in NAD. VS per triage. HEENT: NC/AT. Normal facial exam. Lips normal. Tongue swollen. Uvula normal. Neck: Supple. Trachea midline. No stridor. Lungs: Normal respiratory effort. Lungs are clear. Cor: RRR without murmur. Good radial pulses. Neuro: A+O x 3. Normal mentation, gait. Dysarthria due to tongue swelling. Cranial nerves II - XII grossly intact. No gross motor or sensory deficit. Course Vital Signs Vital signs: Vital Signs Temperature 96.0 F L 02/11/25 21:39 Pulse 98 H 02/11/25 21:39 Respiratory Rate 20 02/11/25 21:39 Blood Pressure 219/87 H 02/11/25 21:39 Pulse Oximetry 98 02/11/25 21:39 Temperature 96.0 F L 02/11/25 21:39 Pulse 98 H 02/11/25 21:39 Respiratory Rate 20 02/11/25 21:39 Blood Pressure 219/87 H 02/11/25 21:39 Blood Pressure Position Sitting 02/11/25 21:39 Pulse Oximetry 98 02/11/25 21:39 Oxygen Delivery Method Room Air 02/11/25 21:39 Oxygen Flow Rate 0 02/11/25 21:39 Medical Decision Making Patient presenting to ED with tongue swelling that previously has occurred and has been treated as an allergic reaction. However, it sounds like no actual trigger ever identified. She is not having rash or pruritus. She has no stridor and her lungs are clear. Blood pressure is elevated but vitals are otherwise fine and pulse ox 100% on room air. Tongue is swollen but lips and uvula are normal. I do not believe this represents an allergic reaction. Suspect this is angioedema related to the lisinopril. Will place an IV and give TXA, observe over time for improvement. Recommend discontinuation of lisinopril. Tongue is still swollen but is definitely improved. Patient is able to talk better. She is continue to have no difficulty with breathing. I think she is safe for discharge home and should continue to improve with her tongue returning to normal. She may check with anesthesia/surgery in the morning to see whether they will proceed with her colonoscopy. I still believe this is angioedema related to her lisinopril and have noted this in her allergy section. Will discontinue her Zestoretic and she will need to follow-up with primary care to start a new blood pressure medication. Discussed all the above with patient and who are in agreement with plan. Discharged home in good condition. 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 Essential hypertension (Chronic 03/06/13) Lichen sclerosus (Acute) Serrated adenoma of colon (Acute) Osteoporosis (Chronic 09/05/12) DEXA 03/30- osteopenia Medical History History of trigger finger Scalp lesion Send pictures to Dr. Rice, metal storage worker, for his advice. Dermatitis, seborrheic (04/22/16) Internal derangement of right knee (02/27/17) Surgical History History of colonoscopy (~09/2021) History of tubal ligation History of carpal tunnel release Excision, Lesion (04/22/16) benign wart, seorrheic keratosis Family History Mother , 79 Heart disease Hyperlipidemia Hypertension Father , 42 Depression Brother , 44 No problems noted. Maternal Grandfather , 45 Cancer Paternal Grandfather , 80 No problems noted. Maternal Grandmother , 79 Heart disease Paternal Grandmother , 75 No problems noted. Daughter No problems noted. Other Essential hypertension Social History Smoking/Tobacco Use Status: Former Tobacco Use Quit Date: 04/10/1967 Tobacco: How many years used: 3 Second Hand Exposure: No Smoking risk assessment performed?: Yes Alcohol Intake: current Alcohol Intake frequency: 0-2 drinks per day Alcohol type: wine Drug use: Never Substance use type: does not use Caregiver/Support person: No Household members: spouse Housing: house Communication Needs: Corrective Lenses Do you need help understanding health information?: Never Pets and animals: No Sexually active: Yes Do you think of yourself as: straight/heterosexual Current gender identity: female What is your relationship status?: How often do you talk on the phone with friends or family?: twice per week How often do you get together with friends or relatives?: twice per week How often do you attend restorationist or taoism services?: decline to answer Do you belong to any clubs or organized social groups?: no Panel score (0-1 are the most socially isolated patients): 2 What type of physical activity do you participate in: walking, other Details: PiYo and yoga Duration: 45-60 minutes/day Frequency: 5-6 times per week Jacqueline/Taoist: No preference Special jacqueline needs: No Seatbelt use: always Drive intox or ride w/intox pile driver: No Do you feel safe at home: Yes Do you feel safe in your relationship?: Yes
[2025-02-11] MEDS: Tranexamic Acid 1,000 MG/10 ML VIAL 1000 MG IVP (22:29)
== END 2025-02-11 23:23 | disposition home or self-care (01) ==
PROVIDERS: Emergency Provider Emergency Medicine; PCP Nurse Practitioner Family
DX: R22.0 Localized swelling, mass and lump, head (principal); T46.4X5A Adverse effect of angiotensin-converting-enzyme inhibitors, initial encounter
CPT/HCPCS: 99283; 99284; 96374

== ENCOUNTER 2025-02-12 06:54 | Day surgery (SDC) | payer MEDICARE, SELFPAY | END 2025-02-12 06:55 | disposition home or self-care (01) | PROVIDERS: PCP Nurse Practitioner Family; Visit Provider Student in an Organized Health Care Education/Training Program | DX: Z53.9 Procedure and treatment not carried out, unspecified reason (principal) ==

== ENCOUNTER 2025-02-28 07:59 | Day surgery (SDC) | payer MEDICARE, SELFPAY ==
[2025-02-28 08:05] VITALS: BP 161/73; PULSE 85; RESP 14; TEMP 36.1; O2SAT 100
[2025-02-28] MEDS: Lactated Ringers 1,000 ML 80 ML IV (08:21)
--- NOTE | 2025-02-28 08:36 | W.ANESPRE ---
General Info Date of Service Date Performed: 02/28/25 Height: 4 ft 11 in Weight: 65.6 kg Body Mass Index (BMI): 29.2 Surgical Procedure: Operation Date: 02/28/25 09:05 Proposed Procedure Side Surgeon mariza Kerr MD Meds Allergies and Home Medications Allergies Allergy/AdvReac Type Severity Reaction Status Date / Time lisinopril Allergy Severe Other (See Verified 02/28/25 08:04 Comment) black flies AdvReac Intermediate Swelling/Ed Uncoded 02/28/25 08:04 gabe Home Medication Medication Instructions Recorded calcium 1,000 mg (as 1 tab PO DAILY 09/04/12 carbonate)-vitamin D3 20 mcg (800 unit) tablet cholecalciferol (vitamin D3) 25 4,000 unit PO DAILY 09/04/12 mcg (1,000 unit) capsule omega-3 fatty acids-fish oil 340 1 ea PO DAILY 03/06/17 mg-1,000 mg capsule (Fish Oil) triamcinolone acetonide 0.5 % 1 applic topical BID PRN eczema #3 09/17/18 topical cream grams clobetasol 0.05 % topical ointment 1 applic topical BID #30 grams 11/26/24 estradiol 0.01% (0.1 mg/gram) 0.25 g vaginal .COMPLEX #42.5 grams 11/26/24 vaginal cream prednisone 1 mg tablet 1 mg PO DAILY PRN facial swelling 11/26/24 #14 tabs simvastatin 20 mg tablet 40 mg (2 x 20 mg) PO DAILY #180 11/26/24 tab-caps bisacodyl 5 mg tablet,delayed 5 mg PO ONCE #4 tabs 01/27/25 release (Dulcolax (bisacodyl)) polyethylene glycol 3350 17 17 g PO ONCE #238 grams 01/27/25 gram/dose oral powder olmesartan 5 mg tablet 5 mg PO DAILY #90 tabs 02/13/25 Current Visit Medications: Current Medications Generic Name Dose Route Start Last Admin Trade Name Freq PRN Reason Stop Dose Admin Ringer's Solution 1,000 mls @ 80 mls/hr 02/28/25 06:00 02/28/25 08:21 IV 02/28/25 23:59 80 mls/hr INFUSION SOO Administration IV Miscellaneous Supplies 1 each 02/28/25 06:00 Iv Access IV 02/28/25 23:59 DIRECTED SOO Sodium Chloride 0 ml 02/28/25 06:00 Normal Saline Flush 10 Ml Syr IV 02/28/25 23:59 PRN PRN Sodium Chloride 0 ml 02/28/25 06:00 Normal Saline 10 Ml Vial IJ 02/28/25 23:59 DIRECTED PRN Sterile Water 0 ml 02/28/25 06:00 Water,Injection,Sterile 10 Ml Vial IJ 02/28/25 23:59 DIRECTED PRN PFSH Active Problems Active Problems: Problem Status Onset Code Angioedema due to angiotensin converting enzyme inhibitor (EDUARDO-I) Acute T78.3XXA, T46.4X5A Pre-diabetes Acute R73.03 Hyperlipidemia Acute 09/05/12 E78.5 Essential hypertension Chronic 03/06/13 I10 Lichen sclerosus Acute L90.0 Serrated adenoma of colon Acute D12.6 Osteoporosis Chronic 09/05/12 M81.0 Medical History Medical History History of trigger finger Scalp lesion Send pictures to Dr. Rice, echocardiograph technician, for his advice. Dermatitis, seborrheic (04/22/16) Internal derangement of right knee (02/27/17) Surgical History Surgical History History of colonoscopy (~09/2021) History of tubal ligation History of carpal tunnel release Excision, Lesion (04/22/16) benign wart, seorrheic keratosis Tobacco Smoking/Tobacco Use Status: Former Tobacco Use Passive smoking exposure: No Second hand exposure: No Alcohol Alcohol Intake: current Alcohol intake frequency: 0-2 drinks per day Alcohol type: wine Substance Use Substance use: Never Substance use type: does not use Vital Signs and Lab Results Vital Signs Most Recent Vital Signs in EMR: Most Recent Vital Signs Temp Pulse Resp BP Pulse Ox 36.1 C L 85 14 161/73 H 100 02/28/25 08:05 02/28/25 08:05 02/28/25 08:05 02/28/25 08:05 02/28/25 08:05 Anesthesia Assessment and Plan Anesthesia History Personal History: No History of Anesthesia Complications Family History: No Family History of Anesthesia Complications Exercise Tolerance Exercise Tolerance: Metabolic Equivalents>4 Pertinent Negatives Pertinent Negatives: No Symptoms of GERD Cardiac & Pulmonary Exam Cardiac Exam: Normal S1/S2 Heart Sounds Pulmonary Exam: Clear Bilateral Breath Sounds Implantable Cardiac Device Does patient have a Pacemaker or an ICD?: No Airway Exam Known Difficult Airway: No Mallampati Class: 1 Mouth Opening: Normal (> 3cm) Thyromental Distance: Less than 3 cm Neck Range of Motion: Full ROM Neck Circumference: Normal Teeth Condition: Normal Dentition ASA Classification ASA Score: ASA 2 Emergency Case?: No NPO Status NPO Status: NPO Clears >2 hours, Solids >8 hours Anesthesia Plan Resuscitation Status: Full Code Anesthesia Technique: General Anesthesia Airway Planned: Natural Airway Monitors Used: Standard Monitors
[2025-02-28 08:57] VITALS: BMI 29.2
--- NOTE | 2025-02-28 09:01 | W.PM.HP.N ---
Date of service: 02/28/25 Time of Service: 09:04 Assessment and Plan Assessment and plan (1) Serrated adenoma of colon: Status: Acute Assessment and plan: Patient is a 79 yo female who presents for a surveillance colonoscopy given history of polyps. Her most recent colonoscopy was 2021 and polyps were found. The recommendation was that she have a repeat colonoscopy in 3 yrs. She denies any changes in bowel habits. The risks and benefits of the procedure were discussed and consent was obtained prior to the procedure. Plan for surveillance colonoscopy given hsitory of polyps. History of Present Illness Narrative: Patient is a 79 yo female who presents for a surveillance colonoscopy given history of polyps. Her most recent colonoscopy was 2021 and polyps were found. The recommendation was that she have a repeat colonoscopy in 3 yrs. She denies any changes in bowel habits. Review of Systems Cardiovascular Cardiovascular: Denies chest pain and Denies dyspnea Respiratory Respiratory: Denies dyspnea Gastrointestinal Gastrointestinal: Denies abdominal pain, Denies nausea and Denies vomiting Genitourinary Genitourinary: Denies dysuria PFSH All Active Problems Angioedema due to angiotensin converting enzyme inhibitor (EDUARDO-I) (Acute) Pre-diabetes (Acute) Hyperlipidemia (Acute 09/05/12) Last numbers were good and we will recheck these. Essential hypertension (Chronic 03/06/13) Lichen sclerosus (Acute) Serrated adenoma of colon (Acute) Osteoporosis (Chronic 09/05/12) DEXA 03/30- osteopenia Medical History History of trigger finger Scalp lesion Send pictures to Dr. Rice, occupational health coordinator, for his advice. Dermatitis, seborrheic (04/22/16) Internal derangement of right knee (02/27/17) Surgical History History of colonoscopy (~09/2021) History of tubal ligation History of carpal tunnel release Excision, Lesion (04/22/16) benign wart, seorrheic keratosis Family History Mother , 79 Heart disease Hyperlipidemia Hypertension Father , 42 Depression Brother , 44 No problems noted. Maternal Grandfather , 45 Cancer Paternal Grandfather , 80 No problems noted. Maternal Grandmother , 79 Heart disease Paternal Grandmother , 75 No problems noted. Daughter No problems noted. Other Essential hypertension Social History Smoking/Tobacco Use Status: Former Tobacco Use Quit Date: 04/10/1967 Tobacco: How many years used: 3 Second Hand Exposure: No Smoking risk assessment performed?: Yes Alcohol Intake: current Alcohol Intake frequency: 0-2 drinks per day Alcohol type: wine Drug use: Never Substance use type: does not use Caregiver/Support person: No Household members: spouse Housing: house Communication Needs: Corrective Lenses Do you need help understanding health information?: Never Pets and animals: No Sexually active: Yes Do you think of yourself as: straight/heterosexual Current gender identity: female What is your relationship status?: How often do you talk on the phone with friends or family?: twice per week How often do you get together with friends or relatives?: twice per week How often do you attend baptist or restoration services?: decline to answer Do you belong to any clubs or organized social groups?: no Panel score (0-1 are the most socially isolated patients): 2 What type of physical activity do you participate in: walking, other Details: PiYo and yoga Duration: 45-60 minutes/day Frequency: 5-6 times per week Jacqueline/Congregational: No preference Special jacqueline needs: No Seatbelt use: always Drive intox or ride w/intox tank truck driver: No Do you feel safe at home: Yes Do you feel safe in your relationship?: Yes Meds Allergies and Home Medications Allergies Allergy/AdvReac Type Severity Reaction Status Date / Time lisinopril Allergy Severe Other (See Verified 02/28/25 08:04 Comment) black flies AdvReac Intermediate Swelling/Ed Uncoded 02/28/25 08:04 gabe Home Medications Medication Instructions Recorded Confirmed Type calcium 1,000 mg (as 1 tab PO DAILY 09/04/12 02/28/25 History carbonate)-vitamin D3 20 mcg (800 unit) tablet cholecalciferol (vitamin D3) 25 4,000 unit PO DAILY 09/04/12 02/28/25 History mcg (1,000 unit) capsule omega-3 fatty acids-fish oil 340 1 ea PO DAILY 03/06/17 02/28/25 History mg-1,000 mg capsule (Fish Oil) triamcinolone acetonide 0.5 % 1 applic topical BID PRN eczema #3 09/17/18 02/26/25 Rx topical cream grams clobetasol 0.05 % topical ointment 1 applic topical BID #30 grams 11/26/24 02/26/25 Rx estradiol 0.01% (0.1 mg/gram) 0.25 g vaginal .COMPLEX #42.5 grams 11/26/24 02/26/25 Rx vaginal cream prednisone 1 mg tablet 1 mg PO DAILY PRN facial swelling 11/26/24 02/26/25 Rx #14 tabs simvastatin 20 mg tablet 40 mg (2 x 20 mg) PO DAILY #180 11/26/24 02/28/25 Rx tab-caps bisacodyl 5 mg tablet,delayed 5 mg PO ONCE #4 tabs 01/27/25 02/28/25 Rx release (Dulcolax (bisacodyl)) polyethylene glycol 3350 17 17 g PO ONCE #238 grams 01/27/25 02/28/25 Rx gram/dose oral powder olmesartan 5 mg tablet 5 mg PO DAILY #90 tabs 02/13/25 02/28/25 Rx Exam Narrative Exam Narrative: General: Well appearing, no acute distress. Skin: Good turgor, no visible rashes or lesion HEENT: Normocephalic, atraumatic CV: Regular rate Lungs: Bilateral equal chest rise, non-labored breathing Abdomen: Non-distended Extremities: Warm, well perfused Neurologic: No focal deficits Psychiatric: Alert and oriented, normal mood and affect Results Last Vital Signs Temp 36.1 C L 02/28/25 08:05 Pulse 85 02/28/25 08:05 Resp 14 02/28/25 08:05 BP 161/73 H 02/28/25 08:05 Pulse Ox 100 02/28/25 08:05 Time Spent Time spent with Patient: <40 minutes Time was spent: preparing to see the patient(eg.review tests), obtaining and/or reviewing separately otained hiistory and counseling the patient
--- NOTE | 2025-02-28 09:37 | W.PM.DSUDISC ---
Date of service: 02/28/25 Discharge Plan Disposition Patient Disposition: Home Condition: Good Discharge Details Reason For Visit: Personal history of colon polyps Attending Provider: Ginny Kerr Primary Care Provider: Chloe Jones Home Meds and New Rx's Prescriptions: Continued triamcinolone acetonide 0.5 % cream 1 applic Topical BID PRN (Reason: eczema) Qty: 3 3RF olmesartan 5 mg tablet 5 mg PO DAILY Qty: 90 1RF cholecalciferol (vitamin D3) 1,000 UNIT capsule 4,000 unit PO DAILY calcium carbonate-vitamin D3 1 EACH tablet 1 tab PO DAILY Rx Instructions: VIT D3 400IU Fish Oil 1 EACH capsule 1 ea PO DAILY clobetasol 0.05 % ointment 1 applic topical BID Qty: 30 4RF Rx Instructions: Apply to skin around clitoris, labia, perineum and anus. Use daily in the am and apply prn s/p bowel movement or urination. May stop use when symptoms improve and use prn. estradiol 0.01 % (0.1 mg/gram) cream 0.25 g vaginal .COMPLEX Qty: 42.5 4RF Rx Instructions: 0.25 grams vaginally 2-3 times a week; Use Nightly 2-3x/week. Apply around clitoris, labia, perineum (skin between vagina and anus) and anus. prednisone 1 mg tablet 1 mg PO DAILY PRN (Reason: facial swelling) Qty: 14 0RF simvastatin 20 mg tablet 40 mg PO DAILY Qty: 180 3RF Discontinued polyethylene glycol 3350 17 gram/dose powder 17 g PO ONCE Qty: 238 0RF Rx Instructions: Take per colonoscopy instructions provided by ordering providers office bisacodyl [Dulcolax (bisacodyl)] 5 mg tablet,delayed release (DR/EC) 5 mg PO ONCE Qty: 4 0RF Rx Instructions: Take per colonoscopy instructions provided by ordering providers office Discharge Instructions Instructions: Diverticulosis Additional Instructions: Your colonoscopy went well today. You did not have any evidence of polyps. You did have diverticulosis or small outpouchings of the colon. Given your history of polyps the recommendation would be to have a repeat colonoscopy in 5 years. Please contact the general surgery office if you have any questions or concerns. 1. If tolerated, consume a soft, low fiber diet for 1-2 days. 2[address] Do not drive, drink alcohol, operate machinery, make critical decisions, or do activities that require coordination or balance for 24 hours. 3. Because air was put into your colon during the procedure, expelling air from your rectum (passing gas or farting) is normal. 4. You may not have a bowel movement for 1-3 days because of the colonoscopy prep. This is normal. 5. Go directly to the emergency room if you notice any of the following: Develop chills (warm to touch), or if you have a thermometer and your temperature is above 101 Difficulty breathing or difficultly swallowing Persistent vomiting Severe abdominal pain, other than gas cramps Severe chest pain Black, tarry stools Any bleeding – exceeding one tablespoon 6. Call your physician if the site where your intravenous was started becomes red, swollen, painful, and warm to touch. 7. Your physician has reviewed your pre-procedure medications. Please continue to take those medications as previously ordered. You will be given specific information/education regarding any changes to your medications before leaving. Stand Alone Forms: Portal Information Activity:: Activity as Tolerated Diet:: As Tolerated Discharge Orders Discharge Orders: Discharge Order (Routine); Ordered 02/28/25 Ordered By: Ginny Kerr DS: Diagnosis Discharge Diagnosis (1) Serrated adenoma of colon: Status: Acute
--- NOTE | 2025-02-28 09:40 | W.COLOREPORT ---
Date of service: 02/28/25 Time of Service: 09:40 Colonoscopy Report Date of procedure: 02/28/25 Pre-op diagnosis general: personal history of colon polyps Post-op diagnosis procedure note: same Procedure: Colonoscopy Surgeon: Ginny Kerr Anesthesia Type: General:No Airway Estimated blood loss (mL): 0 Pathology: none sent Complications: None Disposition: PACU Indications: Patient is a 79 yo female who presents for a surveillance colonoscopy given a personal history of colon polyps on her last colonoscopy in 2021. She denies any family history of colon cancer or change in bowel habits. Prep: Miralax/Dulcolax Procedure Start Time: 09:15 Procedure End Time: 09:32 Retraction Time: 9 Findings: Diverticulosis throughout the rectosigmoid colon. Procedure Description: Informed consent was obtained. The patient was taken to the endoscopy suite and placed in the left lateral decubitus position. After adequate intravenous sedation, digital rectal exam was performed, which was normal. A colonoscope was inserted into the rectum and easily negotiated to the cecum. The ileocecal valve and appendiceal orifice were identified. The entire colonic mucosa was then carefully circumferentially inspected upon slow withdrawal of the scope. The cecum, ascending, transverse, and descending colon were all normal. In the rectosigmoid colon, there was diverticulosis. Retroflexion in the rectum was unremarkable. The patient tolerated the procedure well with no complications. Postoperatively, the patient was transferred to the recovery room in stable condition. [place] Bowel Prep [place] Bowel Prep Right Colon: 3 Left Colon: 2 Transverse Colon: 3 Total Score: 8
[2025-02-28 09:45] VITALS: BP 104/59; PULSE 54; RESP 18; TEMP 36.2; O2SAT 100
[2025-02-28 10:00] VITALS: BP 130/62; PULSE 58; RESP 20; TEMP 36.3; O2SAT 100
--- NOTE | 2025-02-28 11:02 | W.ANESPOSTOP ---
Postoperative Evaluation Date, Time and Location Date Performed: 02/28/25 Time Performed: 11:02 Patient Location: Day Surgery Unit Vital Signs Most Recent Imported Vital Signs: Most Recent Vital Signs Temp Pulse Resp BP Pulse Ox 36.3 C L 58 L 20 130/62 100 02/28/25 10:00 02/28/25 10:00 02/28/25 10:00 02/28/25 10:00 02/28/25 10:00 Pain Score Most Recent Pain Score: Most Recent Pain Score Pain Level 0 02/28/25 09:45 Assessment Mental Status: Awake (Alert & Oriented to Patient Baseline) Airway and Respiratory Function: Patent airway with normal (patient baseline) respiratory exam Cardiovascular Function: Hemodynamically Stable Hydration Status: Adequately Hydrated Nausea & Vomiting: No Nausea or Vomiting Pain: Pt. Denies Any Pain Peripheral Nerve Block: Patient did not receive a nerve block
== END 2025-02-28 10:14 | disposition home or self-care (01) ==
PROVIDERS: PCP Nurse Practitioner Family; Visit Provider Student in an Organized Health Care Education/Training Program
PROC: 0DJD8ZZ Inspection of Lower Intestinal Tract, Via Natural or Artificial Opening Endoscopic (ICD-10-PCS; CPT 45378; principal; 2025-02-28 09:00)
DX: Z12.11 Encounter for screening for malignant neoplasm of colon (principal); K57.30 Diverticulosis of large intestine without perforation or abscess without bleeding; Z86.0101 Personal history of adenomatous and serrated colon polyps
CPT/HCPCS: G0105; J2003; J2704